=== PATIENT | male | born 1980 | race African-American/Black ===

== ENCOUNTER 2020-08-04 22:57 | Emergency (ER) | payer BC ==
[~2020-08-04] VITALS: Ht 170.2 cm; Wt 56.7 kg
[2020-08-04 23:00] VITALS: BP 107/74
--- NOTE | 2020-08-04 23:47 | NUR ---
Patient discharged to home in stable condition. Written and verbal after care instructions given. Patient verbalizes understanding of instruction. Pt ambulatory with a steady gait
== END 2020-08-04 23:49 | disposition home or self-care (01) ==
LOC: ER 23:01
DX: L73.8 Other specified follicular disorders (principal)